=== PATIENT | male | born 1965 | race Caucasian/White ===

== ENCOUNTER 2021-02-25 16:58 | Inpatient (IN) | payer OTHER, SELFPAY ==
[2021-02-25] VITALS (10 sets, daily range): BP systolic 125–168; BP diastolic 78–90; PULSE 85–101; RESP 18–24; TEMP 36.4–37.8; O2SAT 82–97; BMI 38.3; BMI 38.2
--- NOTE | 2021-02-25 19:28 | CT_ITS ---
EXAM: CT ANGIOGRAPHY CHEST WITHOUT AND WITH INTRAVENOUS CONTRAST CLINICAL INDICATION: hypoxia, covid TECHNIQUE: Helically acquired angiography images were obtained of the chest without and with intravenous contrast. This CT exam was performed using one or more of the following dose reduction techniques: automated exposure control, adjustment of the mA and/or kV according to patient size, and/or use of iterative reconstruction technique. This report was created using [employer] report generation technology. MIP reconstructed images were created and reviewed. CONTRAST: IV 100mL Isovue-370 COMPARISON: None. FINDINGS: PULMONARY ARTERIES: No demonstrated pulmonary embolism or arterial dissection. AORTA: Unremarkable. Normal in caliber. No evidence of dissection. GREAT VESSELS OF AORTIC ARCH: Unremarkable. Normal in caliber. No evidence of dissection. LUNGS AND PLEURAL SPACES: There is bilateral pneumonia. No mass. No pleural effusion or thickening. HEART: Unremarkable. Heart size is normal. No pericardial effusion. No signs of right heart strain, ratio of right ventricle to left ventricle measures less than 1. MEDIASTINUM: Unremarkable. No mediastinal or hilar adenopathy. Esophagus is unremarkable. No hiatal hernia. THYROID: Unremarkable. No thyroid lesions. BONES/JOINTS: There are degenerative findings of the thoracic spine. No suspicious lytic or blastic abnormality. CT/CTA Chest W/WO Contrast IMPRESSION: 1. No demonstrated pulmonary embolism or arterial dissection. 2. There is bilateral pneumonia. Electronically Signed: Cuba Ferreira MD at 20:17 EST , Service support ,
--- NOTE | 2021-02-25 19:28 | EKG12_ITS ---
Test Reason : SOB Blood Pressure : / mmHG Vent. Rate : 094 BPM Atrial Rate : 094 BPM P-R Int : 152 ms QRS Dur : 092 ms QT Int : 348 ms P-R-T Axes : 033 018 024 degrees QTc Int : 435 ms Normal sinus rhythm Inferior infarct , age undetermined Abnormal ECG Confirmed by RYLEE DAILY, EFFIE ([id number]), editor at large MARK MAGAÑA ([id number]) on 02/26/2021 2:29:30 P M Referred By: ISAC Confirmed By:АНДРЕЙ MCKEE MD
--- NOTE | 2021-02-25 19:29 | RAD_ITS ---
STUDY: X-RAY CHEST REASON FOR EXAM: Male, 55 years old. CHEST PAIN cough TECHNIQUE: XR Chest 1 View COMPARISON: Yesterday FINDINGS: There is no demonstrated pleural abnormality. There is bilateral infiltrate. Normal size heart. Normal mediastinum and marco antonio. Normal visualized pulmonary arteries. There is atherosclerotic calcification of the aortic arch with tortuosity. There are diffuse degenerative changes of the visualized thoracic spine. There is degenerative osteoarthritis of the bilateral shoulders. There is no demonstrated abnormality of the visualized soft tissue structures of the upper abdomen. RAD/Chest 1 View (Portable) IMPRESSION: Bilateral pneumonia. Electronically Signed: Cuba Ferreira MD at 20:16 EST , Service support ,
--- NOTE | 2021-02-25 19:32 | EDS_ITS ---
HPI History of Present Illness Chief Complaint: Shortness of Breath Detail of Chief Complaint: COVID-19 Informant: patient Onset/Context/Timing Onset: Days Context: Gradual Onset Current Severity: Moderate Maximum Severity: Moderate Narrative Narrative: Patient presents secondary to increase shortness of breath with Co vid. He developed symptoms of Covid on the and tested positive on the . He states his oxygen level has been as low as 76% at home. On arrival to the emergency room he was 82% on room air. He is currently satting in the mid 90s on 4 L nasal cannula. He denies significant chest pain but does have some chest wall pain with cough. He states he is not had a fever for the last day and a half. [facility] Medical History Asthma Medical History no medical history Allergy/AdvReac Type Severity Reaction Status Date / Time cat dander Allergy unknown Verified 02/25/21 17:01 Penicillins Allergy unknown Verified 02/25/21 17:01 tetanus and diphtheria Allergy Rash Verified 02/25/21 17:01 toxoids Surgical History no surgical history Social History Smoking Status: Never smoker ROS [facility] ED Constitutional Constitutional ED: Reports fever(s); Denies chills Eyes Eyes: Denies change in vision ENT ENT ED: Denies sore throat Cardiovascular Cardiovascular: Reports chest pain Respiratory/Chest Respiratory/Chest: Reports cough, dyspnea and sputum Gastrointestinal Gastrointestinal: Denies abdominal pain, diarrhea, nausea or vomiting Genitourinary Genitourinary ED: Denies dysuria Musculoskeletal Musculoskeletal: Reports myalgias; Denies back pain Integumentary Denies rash Neurologic Neurologic: Denies headache(s) Allergic/Immunologic Allergic/Immunologic ED: Denies urticaria EXAM Physical Exam Const Vital Signs: 02/25/21 16:58 02/25/21 17:01 02/25/21 19:03 Temperature 98.4 F 98.7 F Temperature Source Temporal Temporal Pulse Rate 101 H 97 Respiratory Rate 22 H 22 H 18 Respiratory Effort Short of Breath Respiratory Pattern Normal Blood Pressure 168/90 H 135/84 H Blood Pressure Mean 116 101 Pulse Ox 82 94 94 Oxygen Delivery Method Room Air Nasal Cannula Room Air Oxygen Flow Rate (L/min) 4 5 Positive well nourished and well developed General Appearance ED: well developed Eyes PERRL and EOMs intact bilaterally Neck supple Chest Wall inspection of chest normal and palpation of chest normal Resp normal respiratory effort Auscultation: diminished lung sounds Cardio regular rate and regular rhythm Extremity normal to inspection Neuro oriented x3 Sensorium / Orientation: alert Psych mental status grossly normal Skin no rashes or lesions noted MDM MDM MDM Narrative Medical decision making narrative: Lab work, CTA chest ordered. Portable chest x-ray ordered per nursing protocol. EKG obtained. Patient given IV Decadron. Lab Data Attestation: I reviewed the patient's lab results. Labs: Laboratory Results - last 24 hr 02/25/21 02/25/21 02/25/21 17:20 17:20 17:20 WBC 16.8 H RBC 4.83 Hgb 15.4 Hct 44.5 MCV 92.1 MCH 31.9 MCHC 34.6 RDW Std Deviation 41.0 RDW Coeff of Gerald 12.0 Plt Count 257 MPV 11.6 Immature Gran % (Auto) 0.800 Neut % (Auto) 84.2 H Lymph % (Auto) 6.6 L Mitchell % (Auto) 8.0 Eos % (Auto) 0.1 Baso % (Auto) 0.3 Absolute Neuts (auto) 14.1 H Absolute Lymphs (auto) 1.10 Nucleated RBC % 0 Sodium 132 L Potassium 3.4 L Chloride 96 L Carbon Dioxide 27.0 Anion Gap 9 BUN 13 Creatinine 1.05 Estim Creat Clear Calc 75.19 Est GFR (MDRD) Af Amer 94 Est GFR (MDRD) Non-Af 78 BUN/Creatinine Ratio 12.4 Glucose 126 H Calcium 9.4 Total Bilirubin 0.60 AST 55 H ALT 64 H Alkaline Phosphatase 76 Total Protein 8.3 H Albumin 2.9 L Globulin 5.4 H Albumin/Globulin Ratio 0.5 L Procalcitonin 0.52 H Radiography Chest X-Ray - ED: 1 View, Read by ED Physician, Right Infiltrate and Left Infiltrate EKG Initial EKG: Attestation: I personally reviewed and interpreted this EKG as follows: Interpretation: Sinus Rhythm (Sinus at 94 with no acute ischemia.) Treatment and Re-Evaluation Comments:: Patient does have significant leukocytosis with a white count of 16.8. Lactic acid elevated. Prolactin elevated at 0.52. Portable chest x-ray per my interpretation shows bilateral infiltrates. CTA result pending. Patient was discussed with hospitalist for admission. At this time he is on 4 to 5 L nasal cannula and satting in the mid 90s. Discharge Plan Triage Chief Complaint: Shortness of Breath ED Provider: Caroline Wade Dx/Rx/DC Orders Clinical Impression: COVID-19, Pneumonia, Respiratory failure Primary Care Provider: Care Physician,No Primary Referrals: Care Physician,No Primary [Primary Care Provider] - Disposition Disposition: Acute Care Hospital [facility]
[2021-02-25] MEDS: dexAMETHasone 4 MG/ML Vial 6 MG IV (19:49)
[2021-02-25 19:50] LABS: Absolute Neutrophil Count 14.1 X10^3/uL (2.0-7.7); Basophil# 0.05 X10^3/uL; Basophil% 0.3 % (0-1); Eosinophil# 0.02 X10^3/uL; Eosinophils% 0.1 % (0-5); Hematocrit 44.5 % (40-54); Hemoglobin 15.4 g/dL (13.0-16.5); Lymphocyte % 6.6 % (19-41); Mean Corp Hgb Conc 34.6 g/dL (32-36); Mean Corpuscular Hgb 31.9 pg (27.0-32.0); Mean Corpuscular Volume 92.1 fL (80-94); Mean Platelet Vol. 11.6 fl (6.2-12.0); Monocyte# 1.34 X10^3/uL; NRBC Flagged by Analyzer 0 % (0-5); Neutrophil # 14.11 X10^3/uL (2.7-7.7); Neutrophil % 84.2 % (47-70); Platelet Count 257 K/mm3 (150-450); Red Blood Count 4.83 M/mm3 (4.6-6.2); White Blood Count 16.8 K/mm3 (4.4-11.0)
[2021-02-25 20:01] LABS: ALB/GLOB Ratio 0.5 RATIO (0.9-2.4); AST(SGOT) 55 U/L (15-37); Alanine Aminotransfer ALT/SGPT 64 U/L (16-61); Albumin, Serum 2.9 g/dL (3.2-5.0); Alkaline Phosphatase 76 U/L (45-117); Anion Gap 9 (5-15); BUN 13 mg/dL (7-18); BUN/Creat Ratio 12.4 RATIO (10-20); Calcium,Total 9.4 mg/dL (8.5-10.1); Chloride 96 mmol/L (98-107); Creatinine, Serum 1.05 mg/dL (0.70-1.30); EST Glomerular Filtration Rate 78 mL/min (>60); Est Glom Filt Rate - Afr Amer 94 mL/min (>60); Estimated Creatinine Clearance 75.19 ml/min; Globulin 5.4 g/dL (2.2-4.2); Glucose 126 mg/dL (74-106); Potassium 3.4 mmol/L (3.5-5.1); Protein, Total 8.3 g/dL (6.4-8.2); Sodium Level 132 mmol/L (136-145)
--- NOTE | 2021-02-25 20:03 | PCM.HP.STD ---
HPI - General General Date of Admission: 02/25/21 Date of Service: 02/25/21 Chief Complaint: COVID, +, worsening sxs. HPI Narrative The patient is a 55 y/o M w/ PMHx: Obesity, Asthma, Hx BPPV who presents to the [facility] ED on 02/25/21 history of onset COVID type symptoms starting on Tuesday the week prior with positive COVID diagnosis on Tuesday with fever, chills, headache, body aches, decreased sense of taste and smell, nausea, emesis as well as diarrhea in addition to cough and shortness of breath, progressively worsening prompting eventual evaluation especially as he noted hypoxia at home reporting 76% on his home pulse oximeter and upon arrival in the ED initially 82% on room air with work of breathing increased. He did report that he was supposed to be administered outpatient monoclonal antibody however discussed with him and his that this would need to be canceled given his current presentation with oxygen requirements. Work-up in the ED included T 90.4, heart rate 101, BP 160/90, respiratory rate 22, initially 82% on room air with most recent 94% requiring 5 L nasal cannula, CBC with WC 16.8, hemoglobin 15.4, platelet 257 with left shift, D-dimer 2.06, CMP with sodium 132, potassium 3.4, chloride 96, glucose 126, lactic acid 2.4, AST/ALT 55/64, troponin high-sensitivity 11, procalcitonin 0.52, urine culture pending per ED, blood culture x2 pending per ED, chest x-ray with bilateral pneumonia, CTPA with no demonstrated PE or arterial dissection with bilateral pneumonia evident. In the ED patient ministered Decadron 6 mg IV x1. PFSH Medical History (Updated 02/26/21 @ 00:[address] Padmini Courtney MD) Asthma Obesity Medical History no medical history Allergy/AdvReac Type Severity Reaction Status Date / Time cat dander Allergy unknown Verified 02/25/21 17:01 Penicillins Allergy unknown Verified 02/25/21 17:01 tetanus and diphtheria Allergy Rash Verified 02/25/21 17:01 toxoids Family History (Updated 02/26/21 @ 00:[address] Padmini Courtney MD) Mother Sjogrens syndrome Rheumatoid arthritis Father Parkinsons disease Surgical History (Updated 02/26/21 @ 00:[address] Padmini Courtney MD) History of hand surgery S/P left knee arthroscopy Surgical History no surgical history Social History (Updated 02/26/21 @ 00:[address] Padmini Courtney MD) household members: spouse and family Smoking Status: Never smoker alcohol intake: current alcohol intake frequency: a few times a month substance use type: does not use ROS ROS Narrative Admission Review of Systems: CONSTITUTIONAL: No weight loss, + fever, chills, weakness or fatigue. HEENT: + headache. Eyes: No visual loss, blurred vision, double vision or yellow sclerae. Ears, Nose, Throat: No hearing loss, sneezing, congestion, runny nose or sore throat. SKIN: No rash or itching, lesions, wounds. CARDIOVASCULAR: No chest pain, chest pressure or chest discomfort, palpitations, edema, orthopnea, syncopal events. RESPIRATORY: + shortness of breath, cough. No marked sputum, wheezing, hemoptysis. GASTROINTESTINAL: + anorexia, nausea, vomiting, diarrhea, No abdominal pain, melena, BRBPR. GENITOURINARY: No dysuria, frequency, urgency or retention. NEUROLOGICAL: + headache, No dizziness, syncope, paralysis, ataxia, numbness or tingling in the extremities, focal weakness, change in bowel or bladder control, seizure. MUSCULOSKELETAL: + muscle, back pain, joint pain or stiffness. HEMATOLOGIC: No anemia, bleeding or bruising. LYMPHATICS: No enlarged nodes. No history of splenectomy. PSYCHIATRIC: No history of depression or anxiety. ENDOCRINOLOGIC: No reports of sweating, cold or heat intolerance. No polyuria or polydipsia. ALLERGIES: + history of asthma, hives, eczema or rhinitis. Vital Signs Vital Signs Vital Signs: 02/25/21 16:58 02/25/21 17:01 02/25/21 19:03 Temperature 98.4 F 98.7 F Temperature Source Temporal Temporal Pulse Rate 101 H 97 Respiratory Rate 22 H 22 H 18 Respiratory Effort Short of Breath Respiratory Pattern Normal Blood Pressure 168/90 H 135/84 H Blood Pressure Mean 116 101 Pulse Ox 82 94 94 Oxygen Delivery Method Room Air Nasal Cannula Room Air Oxygen Flow Rate (L/min) 4 5 Weight Weight: 245 lb Body Mass Index (BMI) 38.3 Physical Exam Narrative Physical Examination: General: Awake, alert, oriented x 3 and cooperative, seated upright in the ED, fatigued and ill-appearing, increased respiratory rate and accessory muscle usage. Skin: Normal color, normal turgor, no icterus, no cyanosis. HEENT: AT/NC, EOMI, PERRLA, dry MM, no carotid bruits or JVD noted. Lungs: Diffusely diminished, greater bases, increased respiratory rate and accessory muscle usage with respiratory compromise evident, no rales, ronchi or wheezing. Heart: Mildly tachycardic with regular rhythm; no gallop, rub audible. Abdomen: Soft, obese, NTTP, ND, distant hyperactive BS, no HSM. Extremities: No cyanosis, clubbing, or edema. Neurological: Patient awake, alert, oriented as noted, cognitive function intact; pupils equally reactive to light and accommodation, cranial nerves II-XII grossly normal, moving all 4 extremities, no focal deficits, strength moderately to severely globally decreased secondary to acute presentation. Psychiatric: Affect appears fatigued, ill-appearing, evidence of respiratory compromise, no acute evidence of depressive or anxiety feelings. Results Lab / Micro Data Result Diagrams: 02/25/21 17:20 02/25/21 17:20 Labs: Laboratory Results - last 24 hr 02/25/21 17:20: WBC 16.8 H, RBC 4.83, Hgb 15.4, Hct 44.5, MCV 92.1, MCH 31.9, MCHC 34.6, RDW Std Deviation 41.0, RDW Coeff of Gerald 12.0, Plt Count 257, MPV 11.6, Immature Gran % (Auto) 0.800, Neut % (Auto) 84.2 H, Lymph % (Auto) 6.6 L, [place] % (Auto) 8.0, Eos % (Auto) 0.1, Baso % (Auto) 0.3, Absolute Neuts (auto) 14.1 H, Absolute Lymphs (auto) 1.10, Nucleated RBC % 0 02/25/21 17:20: Sodium 132 L, Potassium 3.4 L, Chloride 96 L, Carbon Dioxide 27.0, Anion Gap 9, BUN 13, Creatinine 1.05, Estim Creat Clear Calc 75.19, Est GFR (MDRD) Af Amer 94, Est GFR (MDRD) Non-Af 78, BUN/Creatinine Ratio 12.4, Glucose 126 H, Calcium 9.4, Total Bilirubin 0.60, AST 55 H, ALT 64 H, Alkaline Phosphatase 76, Total Protein 8.3 H, Albumin 2.9 L, Globulin 5.4 H, Albumin/Globulin Ratio 0.5 L Assessment & Plan Assessment/Plan (1) Acute respiratory failure with hypoxia: (2) Pneumonia due to COVID-19 virus: PLAN: The patient is a 55 y/o M w/ PMHx: Obesity, Asthma, Hx BPPV who presents to the [facility] ED on 02/25/21 history of onset COVID type symptoms starting on Tuesday the week prior with positive COVID diagnosis on Tuesday with fever, chills, headache, body aches, decreased sense of taste and smell, nausea, emesis as well as diarrhea in addition to cough and shortness of breath, progressively worsening prompting eventual evaluation especially as he noted hypoxia at home reporting 76% on his home pulse oximeter. 1. Acute Hypoxic Respiratory Failure secondary to Acute Bilateral Pneumonia secondary to Acute Viral Syndrome, COVID-19: Will admit to the PCU given notable rise in oxygen needs, will transition to airvo/BIPAP if necessary and if worsens further may require ICU transition, PRN albuterol, HOB, IS parameters w/ pending sputum cultures, respiratory viral panel and urine antigens, will obtain D-dimer, procalcitonin, CRP, CPK, Ferritin, LDH, trop and BNP, continue supportive care including q 2 hour turning including prone given no prone bed availability and judicious hydration, closely monitor for worsening status for ARDS and multiorgan failure, will initiate and continue IV decadron x 10 doses, given presentation will also initiate IV remdesivir but defer to discretion of Infectious disease. If transition to airvo or BIPAP will request ID consultation for consideration barcitinib regimen. 2. Lactic acidosis: Admission lactic acid 2.4, likely secondary to acute presentation #1 with hypoxemia, trend per facility protocol, judicious hydration as noted above. 3. Elevated LFTs: Admission AST/ALT 55/64, likely associated with #1, continue treatment as noted, closely monitor with repeat CMP in a.m. 4. Hypokalemia: Admission K+ 3.4, magnesium level requested, supplementation given, repeat level in AM. 5. Chronic asthma: Not on any routine regimen, continue work-up and treatment as noted above #1, as needed albuterol, encourage strongly I-S. 6. Obesity: Weight loss and lifestyle changes encouraged. 7. DVT prophylaxis: SCDs, Lovenox. 8. CODE status: Patient HCPOA and living will is not in place. Given presentation #1 with acute respiratory failure with Covid pneumonia and unvaccinated status, discussed CODE status at length including difference between FULL code, DNR-CCA and DNR-CC status. Following discussions about the differences in these status, requested Full Code status. Amenable to airvo and BIPAP prior to intubation if necessary. Advanced Care Planning Face to Face Time: 16 minutes. Charges/Coding Visit Charges Inpatient E&M: 61827 Init Hosp L3 Procedures Hospitalists Procedures: 20838 Advncd Care Plan 30 Min
[2021-02-25 20:06] LABS: Procalcitonin 0.52 ng/mL (0.00-0.09)
[2021-02-25 20:13] LABS: Lactic Acid 2.4 mmol/L (0.4-1.9)
[2021-02-25 21:14] LABS: D-Dimer Quantitative (DVT/PE) 2.06 FEU/ug/m (0.27-0.49)
[2021-02-25 21:17] LABS: Ferritin 1425 ng/mL (26-388); LDH 541 U/L (87-241); Magnesium 2.3 mg/dL (1.6-2.6); Troponin-I HS 11 pg/mL (3.0-78.0)
[2021-02-25] MEDS: 0.9% Normal Saline 1,000 ML 100 ML IV (21:38)
[2021-02-25] MEDS: 0.9% Saline Lock 10 ML Syringe IV (21:38)
[2021-02-25 21:39] LABS: BNP,B-Type NATRIURETIC PEPTIDE 17.9 pg/mL (0-100)
[2021-02-25] MEDS: Enoxaparin 40 MG/0.4 ML Syringe SC (22:33)
[2021-02-25] MEDS: Acetaminophen 325 MG Tablet 650 MG PO (22:34)
[2021-02-25] MEDS: Famotidine 20 MG Tablet PO (22:34)
[2021-02-25] MEDS: MELATONIN 3 MG TABLET PO (22:34)
[2021-02-25] MEDS: Potassium Chloride Oral Tablet 20 MEQ 40 MEQ PO (22:34)
--- NOTE | 2021-02-25 23:18 | PCS.PANDOC ---
PANDEMIC DOCUMENTATION INITIATED: Date: 11/24/2020 Time: 190
[2021-02-25 23:45] LABS: Reflex Lactate? Y
[2021-02-26] VITALS (11 sets, daily range): BP systolic 130–152; BP diastolic 72–87; PULSE 60–86; RESP 18–19; TEMP 36.3–36.7; O2SAT 94–99
[2021-02-26 01:19] LABS: Lactic Acid 1.1 mmol/L (0.4-1.9)
--- NOTE | 2021-02-26 04:00 | EKG12_ITS ---
Test Reason : RHYTHM CHANGE Blood Pressure : / mmHG Vent. Rate : 067 BPM Atrial Rate : 067 BPM P-R Int : 176 ms QRS Dur : 104 ms QT Int : 422 ms P-R-T Axes : 043 041 051 degrees QTc Int : 445 ms Normal sinus rhythm Normal ECG When compared with ECG of 25-FEB-2021 19:43, MANUAL COMPARISON REQUIRED, DATA IS UNCONFIRMED Confirmed by RYLEE DAILY, EFFIE ([id number]), video editor MARK MAGAÑA ([id number]) on 02/27/2021 2:11:12 P M Referred By: DR NICHOLAS Confirmed By:АНДРЕЙ MCKEE MD
[2021-02-26 08:28] LABS: Absolute Lymphocyte Count 0.98 X10^3/uL (0.83-4.51); Absolute Neutrophil Count 10.4 X10^3/uL (2.0-7.7); Basophil# 0.01 X10^3/uL; Basophil% 0.1 % (0-1); Eosinophil# 0.01 X10^3/uL; Eosinophils% 0.1 % (0-5); Hematocrit 41.4 % (40-54); Hemoglobin 14.2 g/dL (13.0-16.5); Lymphocyte # 0.98 X10^3/ul (0.83-4.51); Lymphocyte % 7.9 % (19-41); Mean Corp Hgb Conc 34.3 g/dL (32-36); Mean Corpuscular Hgb 31.9 pg (27.0-32.0); Mean Platelet Vol. 10.8 fl (6.2-12.0); Monocyte# 0.93 X10^3/uL; Monocyte% 7.5 % (0-10); NRBC Flagged by Analyzer 0 % (0-5); Neutrophil # 10.39 X10^3/uL (2.7-7.7); Neutrophil % 83.8 % (47-70); Platelet Count 252 K/mm3 (150-450); RBC Distribution Width SD 41.6 fl (35.1-43.9); Red Blood Count 4.45 M/mm3 (4.6-6.2); White Blood Count 12.4 K/mm3 (4.4-11.0)
[2021-02-26 08:46] LABS: ALB/GLOB Ratio 0.6 RATIO (0.9-2.4); AST(SGOT) 45 U/L (15-37); Alanine Aminotransfer ALT/SGPT 60 U/L (16-61); Albumin, Serum 2.7 g/dL (3.2-5.0); Alkaline Phosphatase 66 U/L (45-117); Anion Gap 8 (5-15); BUN 17 mg/dL (7-18); Calcium,Total 8.9 mg/dL (8.5-10.1); Chloride 101 mmol/L (98-107); Creatinine, Serum 0.77 mg/dL (0.70-1.30); EST Glomerular Filtration Rate 111 mL/min (>60); Est Glom Filt Rate - Afr Amer 135 mL/min (>60); Estimated Creatinine Clearance 102.54 ml/min; Globulin 4.2 g/dL (2.2-4.2); Glucose 118 mg/dL (74-106); Potassium 4.6 mmol/L (3.5-5.1); Protein, Total 6.9 g/dL (6.4-8.2); Sodium Level 136 mmol/L (136-145)
[2021-02-26] MEDS: 0.9% Saline Lock 10 ML Syringe IV (09:02)
[2021-02-26] MEDS: Enoxaparin 40 MG/0.4 ML Syringe SC ×2 (09:02→20:58)
[2021-02-26] MEDS: Famotidine 20 MG Tablet PO ×2 (09:02→20:58)
[2021-02-26] MEDS: dexAMETHasone 4 MG/ML Vial 6 MG IV (09:02)
--- NOTE | 2021-02-26 16:50 | CASEMGMT ---
RN CM ENGINE INSPECTOR LOVE spoke w/pt for initial transition planning/care coordination assessment. KHLOE ALEMAN introduced self and role at [facility]. Pt voices understanding and consents to assessment at this time. Pt is A/O at this time and answers all questions appropriately. Care providers, pharmacy, and demographics verified/updated at this time. COVID testing was done @ [facility] on Tuesday. They emailed him the results. Pt provided w/CDI's email and will forward it to her. PCP: Dr Todd @ [facility] Specialists: None Preferred Pharmacy: [facility] Insurance: [employer] Prescription Benefit: Yes Living Will/HPOA: Pt does not currently have LW/HCPOA and declines info at this time. LNOK: , Caroline Living Arrangements: Lives w/ and 2 daughters in split-level home. Independent. Family supportive. Youngest dtr had COVID about a month ago. is doing fine but she has a slight cough and plans to get COVID testing done tomorrow. They have family nearby that can bring groceries and supplies, if needed. Transportation: Pt states drives self and states no transportation concerns at this time. DME: Has a pulse ox. Does not have home O2. Reviewed list of local DME companies. Pt has no preference on DME company should he need O2 at home and is agreeable to [employer]. HHC/SNF: No hx of either. No needs identified. Pt wishes to return home and states has no concerns with going home at time of discharge. CM to follow for home oxygen needs and any further discharge planning/needs. Pt voices no further concerns/needs at this time. Advised pt to ask for CM if any further questions/concerns/needs arise. Voices understanding. PLAN: Home. Will need home O2 testing completed prior to discharge. Ivone ASENCIO RN, CM
--- NOTE | 2021-02-26 19:22 | PCM.PN.HOSP ---
Subjective Subjective Patient was seen and examined today, he is in good spirits, he appears comfortable on oxygen at 2 L via nasal cannula. Patient remains on dexamethasone and remdesivir. Objective Data Objective Data Vital Signs: Vital Signs Temp Pulse Resp BP Pulse Ox 97.3 F L 85 19 H 143/87 H 95 02/26/21 14:58 02/26/21 14:59 02/26/21 14:58 02/26/21 14:58 02/26/21 14:58 Oxygen Flow Rate (L/min) 2 Oxygen Delivery Method Nasal Cannula Weight: 110 kg Body Mass Index (BMI) 38.2 Intake & Output: Intake and Output for Last 24 Hours 02/24/21 02/25/21 02/26/21 23:59 23:59 23:59 Intake Total 395 / 395 1779.58 / 1779.58 Output Total 500 / 500 Balance 395 / 395 1279.58 / 1279.58 Lab / Micro Data Result Diagrams: 02/26/21 08:00 02/26/21 08:00 Labs: Laboratory Results - last 24 hr 02/25/21 00:40: Lactic Acid 1.1 02/25/21 17:20: Procalcitonin 0.52 H 02/25/21 17:20: WBC 16.8 H, RBC 4.83, Hgb 15.4, Hct 44.5, MCV 92.1, MCH 31.9, MCHC 34.6, RDW Std Deviation 41.0, RDW Coeff of Gerald 12.0, Plt Count 257, MPV 11.6, Immature Gran % (Auto) 0.800, Neut % (Auto) 84.2 H, Lymph % (Auto) 6.6 L, [place] % (Auto) 8.0, Eos % (Auto) 0.1, Baso % (Auto) 0.3, Absolute Neuts (auto) 14.1 H, Absolute Lymphs (auto) 1.10, Nucleated RBC % 0 02/25/21 17:20: Sodium 132 L, Potassium 3.4 L, Chloride 96 L, Carbon Dioxide 27.0, Anion Gap 9, BUN 13, Creatinine 1.05, Estim Creat Clear Calc 75.19, Est GFR (MDRD) Af Amer 94, Est GFR (MDRD) Non-Af 78, BUN/Creatinine Ratio 12.4, Glucose 126 H, Calcium 9.4, Total Bilirubin 0.60, AST 55 H, ALT 64 H, Alkaline Phosphatase 76, Total Protein 8.3 H, Albumin 2.9 L, Globulin 5.4 H, Albumin/Globulin Ratio 0.5 L 02/25/21 17:20: Lactic Acid 2.4 H* 02/25/21 17:20: D-Dimer Quant (PE/DVT) 2.06 H* 02/25/21 17:20: Magnesium 2.3, Ferritin 1425 H, Lactate Dehydrogenase 541 H, Troponin I High Sens 11, C-React Prot Ext Range 136.00 H 02/25/21 17:20: B-Natriuretic Peptide 17.9 02/26/21 08:00: WBC 12.4 H, RBC 4.45 L, Hgb 14.2, Hct 41.4, MCV 93.0, MCH 31.9, MCHC 34.3, RDW Std Deviation 41.6, RDW Coeff of Gerald 12.0, Plt Count 252, MPV 10.8, Immature Gran % (Auto) 0.600, Neut % (Auto) 83.8 H, Lymph % (Auto) 7.9 L, [place] % (Auto) 7.5, Eos % (Auto) 0.1, Baso % (Auto) 0.1, Absolute Neuts (auto) 10.4 H, Absolute Lymphs (auto) 0.98, Nucleated RBC % 0 02/26/21 08:00: Sodium 136, Potassium 4.6, Chloride 101, Carbon Dioxide 27.0, Anion Gap 8, BUN 17, Creatinine 0.77, Estim Creat Clear Calc 102.54, Est GFR (MDRD) Af Amer 135, Est GFR (MDRD) Non-Af 111, BUN/Creatinine Ratio 22.0 H, Glucose 118 H, Calcium 8.9, Total Bilirubin 0.40, AST 45 H, ALT 60, Alkaline Phosphatase 66, Total Protein 6.9, Albumin 2.7 L, Globulin 4.2, Albumin/Globulin Ratio 0.6 L Micro: Microbiology 02/26/21 04:20 Mucosa - Nasopharyngeal Respiratory Panel (PCR) - Final 02/25/21 22:40 Urine, Clean Catch Legionella Antigen - Final 02/25/21 22:40 Urine, Clean Catch Streptococcus pneumoniae Antigen (M - Final Radiography Diagnostic Testing: Radiology Impression Chest CTA 02/25/21 19:28 IMPRESSION: 1. No demonstrated pulmonary embolism or arterial dissection. 2. There is bilateral pneumonia. Electronically Signed: Cuba Ferreira MD at 20:17 EST , Service support , Chest X-Ray 02/25/21 19:29 IMPRESSION: Bilateral pneumonia. Electronically Signed: Cuba Ferreira MD at 20:16 EST , Service support , Physical Exam Const alert, oriented x3, no apparent distress and healthy appearing General Appearance: cooperative, well kempt and well developed Orientation / Consciousness: awake, oriented to person, oriented to place and oriented to time HEENT normocephalic and moist oral mucous membranes Eyes PERRL, EOMs intact bilaterally and conjunctivae normal Neck nuchal rigidity, supple, no JVD, thyroid normal and no carotid bruits General: trachea midline Resp normal respiratory effort and clear to auscultation bilaterally Auscultation: Negative for rales, rhonchi or wheezes Cardio regular rate, regular rhythm, no murmurs, no rub and no gallops GI normal to inspection, nondistended, normoactive bowel sounds, soft to palpation, non-tender and non-distended Extremity no clubbing, cyanosis or edema Skin no rashes or lesions noted General Skin Exam: no breakdown Neuro oriented x3, CN's II-XII intact bilaterally, no focal motor deficits and no sensory deficits noted Sensorium / Orientation: awake and alert Speech: speech normal Psych thought process normal and affect normal Assessment & Plan Assessment/Plan (1) Pneumonia due to COVID-19 virus: PLAN: 1. COVID-19 pneumonia, patient will continue on remdesivir and dexamethasone, I urged the patient to get a vaccine in 2 months. #2 acute hypoxic respiratory failure secondary to #1-patient's oxygen will be weaned if possible Charges/Coding Visit Charges Inpatient E&M: 05660 Subs Hosp L2
[2021-02-26] MEDS: MELATONIN 3 MG TABLET PO (23:44)
[2021-02-27] VITALS (12 sets, daily range): BP systolic 127–146; BP diastolic 75–94; PULSE 58–91; RESP 15–18; TEMP 35.2–36.3; O2SAT 87–95
[2021-02-27] MEDS: Famotidine 20 MG Tablet PO ×2 (10:34→21:04)
[2021-02-27] MEDS: Enoxaparin 40 MG/0.4 ML Syringe SC ×2 (10:34→21:03)
[2021-02-27] MEDS: dexAMETHasone 4 MG/ML Vial 6 MG IV (10:36)
--- NOTE | 2021-02-27 11:13 | CASEMGMT ---
Pt states no preference for DME company and green sheet left on chart for [facility] for home oxygen, if pt qualifies at discharge. Pt is independent in room and states no further concerns at discharge. Melva LEDBETTER CM
--- NOTE | 2021-02-27 19:40 | PCM.PN.HOSP ---
Subjective Subjective Patient was seen and examined today, he appears comfortable at rest, he does not complain of any fevers, chills, or chest discomfort. Patient remains on 2 L of oxygen at rest, he requires 3 L via nasal cannula to maintain his pulse ox when ambulating. Objective Data Objective Data Vital Signs: Vital Signs Temp Pulse Resp BP Pulse Ox 95.4 F L 89 16 136/89 H 94 02/27/21 18:15 02/27/21 19:00 02/27/21 18:15 02/27/21 18:15 02/27/21 18:15 Oxygen Flow Rate (L/min) [ 3 AMBULATING with Oxygen #2] Oxygen Flow Rate (L/min) [ 2 AMBULATING with Oxygen #1] Oxygen Flow Rate (L/min) [At 2 REST with Oxygen] Oxygen Flow Rate (L/min) 2 Oxygen Delivery Method Room Air Weight: 110.7 kg Body Mass Index (BMI) 38.2 Intake & Output: Intake and Output for Last 24 Hours 02/25/21 02/26/21 02/27/21 23:59 23:59 23:59 Intake Total 395 / 395 2029.58 / 2029.58 2039 Output Total 500 / 500 Balance 395 / 395 1529.58 / 1529.58 2039 Lab / Micro Data Result Diagrams: 02/26/21 08:00 02/26/21 08:00 Micro: Microbiology 02/26/21 04:20 Mucosa - Nasopharyngeal Respiratory Panel (PCR) - Final 02/25/21 22:40 Urine, Clean Catch Legionella Antigen - Final 02/25/21 22:40 Urine, Clean Catch Streptococcus pneumoniae Antigen (M - Final Physical Exam Const alert, oriented x3, no apparent distress and healthy appearing General Appearance: cooperative, well kempt and well developed Orientation / Consciousness: awake, oriented to person, oriented to place and oriented to time HEENT normocephalic and moist oral mucous membranes Eyes PERRL, EOMs intact bilaterally and conjunctivae normal Neck nuchal rigidity, supple, no JVD, thyroid normal and no carotid bruits General: trachea midline Resp normal respiratory effort and clear to auscultation bilaterally Auscultation: Negative for rales, rhonchi or wheezes Cardio regular rate, regular rhythm, no murmurs, no rub and no gallops GI normal to inspection, nondistended, normoactive bowel sounds, soft to palpation, non-tender and non-distended Extremity no clubbing, cyanosis or edema Skin no rashes or lesions noted General Skin Exam: no breakdown Neuro oriented x3, CN's II-XII intact bilaterally, no focal motor deficits and no sensory deficits noted Sensorium / Orientation: awake and alert Speech: speech normal Psych thought process normal and affect normal Assessment & Plan Assessment/Plan (1) COVID-19: (2) Pneumonia due to COVID-19 virus: PLAN: 1. COVID-19 pneumonia, patient will continue on remdesivir and dexamethasone, I urged the patient to get a vaccine in 2 months. #2 acute hypoxic respiratory failure secondary to #1-patient's oxygen will be weaned if possible patient will be reevaluated tomorrow for possible discharge Charges/Coding Visit Charges Inpatient E&M: 95737 Subs Hosp L2
[2021-02-27] MEDS: MELATONIN 3 MG TABLET PO (23:31)
[2021-02-28 03:00] VITALS: PULSE 52
[2021-02-28 04:11] VITALS: BP 141/91; PULSE 72; RESP 18; TEMP 36.2; O2SAT 93
[2021-02-28 04:26] VITALS: BP 141/91
[2021-02-28 07:14] VITALS: O2SAT 94
[2021-02-28 07:15] VITALS: PULSE 68
[2021-02-28] MEDS: dexAMETHasone 4 MG/ML Vial 6 MG IV (11:26)
[2021-02-28] MEDS: Enoxaparin 40 MG/0.4 ML Syringe SC (11:27)
[2021-02-28] MEDS: Famotidine 20 MG Tablet PO (11:27)
[2021-02-28] MEDS: 0.9% Saline Lock 10 ML Syringe IV (11:29)
[2021-02-28 11:30] VITALS: BP 151/98; PULSE 84; RESP 18; TEMP 36.4; O2SAT 89; O2SAT 92
--- NOTE | 2021-02-28 13:42 | PCM.DC ---
Discharge Instructions Diet Discharge Diet: No restrictions Activity Discharge Activity: Return to Normal Activity Weight Bearing Status: Full weight bearing Follow Up Care Test Results: Test results from this visit will be discussed in further detail at your follow-up appointment, if applicable. Discharge Plan Admission Admit Date/Time: 02/25/21 20:51 Primary Reason for Your Visit: COVID-19 pneumonia Attending Provider: Rodrick Mcgregor Primary Care Provider: Hayden Hedrick Instructions Additional Instructions / Restrictions: Start your Dexamethasone tomorrow Quarantine until 03/14/21 Discharge Orders/Prescriptions Prescriptions: New dexamethasone 2 mg tablet 6 mg PO DAILY Qty: 18 RF: 0 Referrals / Follow Up: Hayden Hedrick DO [Primary Care Provider] - Within 1 Month Care Physician,No Primary [NON-STAFF] - Disposition Disposition (needs filled in before D/C Order can be placed): Home, Self Care
--- NOTE | 2021-02-28 14:12 | PCM.DC.SUM ---
Providers Date of Admission: 02/25/21 Date of Discharge: 02/28/21 Primary Care Physician: Dr. Hayden Hedrick DO Reason For Visit: RESP FAILURE, COVID PNA Diagnosis Discharge Diagnosis (1) Pneumonia due to COVID-19 virus: Status: Acute Code(s): U07.1 - COVID-19; J12.82 - Pneumonia due to coronavirus disease 2019 Plan: 1. COVID-19 pneumonia #2 acute hypoxic respiratory failure secondary to #1 Medications at Discharge Home Medications dexamethasone 6 mg PO DAILY #18 tab 02/28/21 Hospital Course Operations None Procedures None Summary of Care Provided Minutes Spent on Discharge: 32 Hospital Course: Patient was seen in the emergency room at [facility] with an increased shortness of breath, he had been diagnosed with Covid on 22 February 2021. Patient stated that his pulse ox at home had been 76% on room air. On arrival to the emergency room, his pulse ox was 82% on room air. Labs revealed a leukocytosis with a white count of 16.8, lactic acid was elevated, chest x-ray showed bilateral infiltrates. Patient was admitted to PCU for COVID-19 pneumonia, he received IV dexamethasone and remdesivir, patient improved during his hospital stay. On 02/28/2021, patient was seen and examined: On examination he appeared in good health and spirits. Vital signs as documented. Skin warm and dry and without overt rashes. Neck without JVD, neck was supple, trachea midline, thyroid was normal. Lungs clear bilaterally, normal air movement was noted. Heart exam notable for regular rhythm, normal sounds and absence of murmurs, rubs or gallops. Abdomen unremarkable and without evidence of organomegaly, masses, or abdominal aortic enlargement. Bowel sounds are present, abdomen is not distended. Extremities nonedematous, no cyanosis was noted, no clubbing was noted. Neuro: Cranial nerves II through XII are grossly intact, no focal motor deficits were noted, sensation to light touch and pinprick intact, motor exam 5/5 throughout. Psych: Patient is alert and oriented x3, he does not appear anxious or depressed, he does not appear agitated. Patient's pulse ox was normal on 02/28/2021-he did not require supplemental oxygen, he was discharged home on that date in stable condition. Weight / BMI Weight Weight: 109.4 kg Body Mass Index (BMI) 38.2 ABG / Lab / Microbiology Data Result Diagrams: 02/26/21 08:00 02/26/21 08:00 Microbiology: Microbiology 02/25/21 17:20 Blood Culture (Wb) - Anticubital Left Blood Culture - Preliminary No growth in 48 hours. 02/25/21 17:20 Blood Culture (Wb) - Right Hand Blood Culture - Preliminary No growth in 48 hours. 02/26/21 04:20 Mucosa - Nasopharyngeal Respiratory Panel (PCR) - Final 02/25/21 22:40 Urine, Clean Catch Legionella Antigen - Final 02/25/21 22:40 Urine, Clean Catch Streptococcus pneumoniae Antigen (M - Final D/C Instructions Discharge Diet: No restrictions Weight Bearing Status: Full weight bearing Meaningful Use Info Meaningful Use Diagnoses (Choose all that apply): None applicable Discharge Plan Admission Admit Date/Time: 02/25/21 20:51 Primary Reason for Your Visit: COVID-19 pneumonia Attending Provider: Rodrick Mcgregor Primary Care Provider: Hayden Hedrick Instructions Additional Instructions / Restrictions: Start your Dexamethasone tomorrow Quarantine until 03/14/21 Discharge Orders/Prescriptions Prescriptions: New dexamethasone 2 mg tablet 6 mg PO DAILY Qty: 18 RF: 0 Referrals / Follow Up: Hayden Hedrick DO [Primary Care Provider] - Within 1 Month Care Physician,No Primary [NON-STAFF] - Disposition Disposition (needs filled in before D/C Order can be placed): Home, Self Care Charges/Coding Visit Charges Inpatient E&M: 21862 Disch Hosp
== END 2021-02-28 14:46 | disposition home or self-care (01) | DRG 177 ==
LOC: ED 20:14 → PCU 20:57
PROVIDERS: Admitting Provider Family Medicine; Emergency Provider Emergency Medicine; PCP Preventive Medicine Occupational Medicine; Visit Provider Internal Medicine
DX: U07.1 COVID-19 (principal); J12.82 Pneumonia due to coronavirus disease 2019; J96.01 Acute respiratory failure with hypoxia; E87.2 Acidosis; E87.6 Hypokalemia; Z28.3 Underimmunization status; J45.909 Unspecified asthma, uncomplicated; E66.9 Obesity, unspecified; Z68.38 Body mass index [BMI] 38.0-38.9, adult
CPT/HCPCS: 36415; 71045; 71275; 80053; 82728; 83605; 83615; 83735; 83880; 84145; 84484; 85025; 85379; 86140; 87040; 87449; 87633; 93005; 97802; 99251; 99285; J7030; J7050; Q0245; Q9967; A4216; G0463